=== PATIENT | male | born 1950 | race Caucasian/White ===

== ENCOUNTER → 2019-01-31 09:36 | Outpatient (CLI) | payer MEDICARE, OTHER, SELFPAY ==
[2019-01-31 11:40] LABS: Prostate Specific Antigen 4.32 ng/mL (0.10-4.00)
== END ==
PROVIDERS: Visit Provider Specialist
DX: N40.1 Benign prostatic hyperplasia with lower urinary tract symptoms (principal)
CPT/HCPCS: 36415; 84153

== ENCOUNTER → 2019-04-25 12:39 | Outpatient (CLI) | payer MEDICARE, OTHER, SELFPAY ==
[2019-04-25 14:21] LABS: Prostate Specific Antigen 4.37 ng/mL (0.10-4.00)
== END ==
PROVIDERS: Visit Provider Specialist
DX: N40.1 Benign prostatic hyperplasia with lower urinary tract symptoms (principal)
CPT/HCPCS: 36415; 84153

== ENCOUNTER → 2020-07-03 14:07 | Outpatient (CLI) | payer MEDICARE, OTHER, SELFPAY ==
[2020-07-03 15:43] LABS: Prostate Specific Antigen 6.61 ng/mL (0.10-4.00)
== END ==
PROVIDERS: Referring Provider Specialist; Visit Provider Specialist
DX: R97.20 Elevated prostate specific antigen [PSA] (principal)
CPT/HCPCS: 36415; 84153

== ENCOUNTER → 2020-07-13 11:08 | Outpatient (CLI) | payer MEDICARE, OTHER, SELFPAY ==
--- NOTE | 2020-07-13 11:09 | DI.MRI.S_ITS ---
PROCEDURE: MR PELIS WO/W CON INDICATIONS: Differential diagnosis/Elevated PSA TECHNIQUE: Coronal HASTE, axial T1 FSE with fat saturation, 3-plane nonbreath-hold T2 FSE. After the administration of contrast, dynamic axial, delayed axial and coronal VIBE or 2-D FLASH with fat saturation through the pelvis. Optional diffusion weighted imaging and ADC may be performed. COMPARISON: None. FINDINGS: Image quality: Diffusion weighted and dynamic contrast enhanced images are diagnostic. Prostate: Gland size is cm; ellipsoid gland volume is 114 mL. There is prominent heterogeneous enlargement of the transitional zone. Lesion size(s): Lesion 1: Approximately 1.9 x 1.8 x 1.7 cm Lesion location(s) (sector): Lesion 1: Right anterior transitional zone at the apex. Lesion description: Lesion 1: There is an oval T2 hypointense lesion with indistinct margins. No definite extraprostatic extension. T2 weighted imaging (T2WI) morphology score: Lesion 1: 5 Diffusion weighted imaging (DWI) morphology score: Lesion 1: 5 Dynamic contrast enhancement (DCE): Lesion 1: Absent. Lesion PI-RADS score: Lesion 1: PI-RADS 5 Genitourinary system: There is mild bladder wall thickening and trabeculation compatible sequelae of chronic bladder outlet obstruction. Distal ureters are non distended. Bowel and peritoneum: No pathologic free pelvic fluid. Inferior colon and small bowel loops are normal in caliber. Nodes and vessels: No pelvic or inguinal adenopathy by size criteria. Iliac vessels are normal in caliber. Soft tissues: No inguinal hernias. Bones: Marrow demonstrates normal overall signal, without suspicious lesions to suggest metastases. There are a few small cystic lesions in the femoral necks bilaterally likely representing synovial herniation pits. There is mild periarticular enhancement around the hips, right greater than the left, likely reflecting degenerative changes. IMPRESSION: 1. PI-RADS 5 lesion demonstrated within the right transitional zone at very high suspicion for clinically significant prostate cancer. No evidence of extraprostatic extension. 2. No evidence of pelvic lymphadenopathy by size criteria. Dictated by: Braden Wolfe M.D. on 07/13/2020 at 15:21 Approved by: Braden Wolfe M.D. on 07/13/2020 at 16:07
== END ==
PROVIDERS: Referring Provider Specialist; Visit Provider Specialist
DX: N42.9 Disorder of prostate, unspecified (principal); R97.20 Elevated prostate specific antigen [PSA]; Z80.42 Family history of malignant neoplasm of prostate
CPT/HCPCS: 72197

== ENCOUNTER → 2024-03-22 11:09 | Outpatient (CLI) | payer MEDICARE, OTHER, SELFPAY ==
--- NOTE | 2024-03-22 11:13 | DI.RAD.S_ITS ---
PROCEDURE: XR KNEE LT 3V INDICATIONS: KNEE PAIN TECHNIQUE: 3 views of the knee were acquired. COMPARISON: None. 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 No radiographic evidence of fracture, dislocation, knee joint effusion or high attenuation soft tissue foreign body. If symptoms persist or worsen, or there is high clinical suspicion of acute abnormality, MRI could be performed Dictated by: Morales Obrien M.D. on 03/22/2024 at 20:16 Approved by: Morales Obrien M.D. on 03/22/2024 at 20:18
== END ==
PROVIDERS: PCP Family Medicine; Referring Provider Family Medicine; Visit Provider Family Medicine
DX: M25.562 Pain in left knee (principal); G89.29 Other chronic pain
CPT/HCPCS: 73562

== ENCOUNTER → 2024-05-30 17:00 | Outpatient (CLI) | payer MEDICARE, OTHER, SELFPAY ==
--- NOTE | 2024-05-30 17:03 | DI.RAD.S_ITS ---
PROCEDURE: XR CHEST 2V INDICATIONS: PNEUMONIA TECHNIQUE: 2 views of the chest were acquired. COMPARISON: None. FINDINGS: Surgical changes and devices: None. Lungs and pleura: Dense consolidation is seen in the right middle lobe with silhouetting of the right heart border. No pleural effusions or pneumothorax. Mediastinum: Mediastinal contours are normal. Heart size is normal. Bones and chest wall: No suspicious bony abnormalities. Soft tissues appear unremarkable. IMPRESSION: Dense consolidation in the right middle lobe is suspicious for pneumonia. Recommend radiographic follow-up to resolution. Approved by: Israel Cadet M.D. on 05/30/2024 at 17:46
== END ==
PROVIDERS: PCP Family Medicine; Referring Provider Internal Medicine; Visit Provider Internal Medicine
DX: J18.9 Pneumonia, unspecified organism (principal)
CPT/HCPCS: 71046

== ENCOUNTER → 2025-04-13 13:09 | Outpatient (CLI) | payer MEDICARE, OTHER, SELFPAY ==
--- NOTE | 2025-04-13 13:13 | DI.RAD.S_ITS ---
PROCEDURE: XR HAND LT MIN 3V INDICATIONS: STIFFNESS IN HANDS TECHNIQUE: 3 views of the hand(s) acquired. COMPARISON: None. FINDINGS: Bones: No fractures or dislocations. Degenerative change of the trapeziometacarpal, triscaphe and 1st interphalangeal joints includes joint space narrowing, marginal osteophytosis and subchondral sclerosis. Carpal bones are normally aligned. No suspicious bony lesions. Soft tissues: No suspicious soft tissue calcifications. 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 Dictated by: Richardson Armenta M.D. on 04/17/2025 at 5:57 Approved by: Richardson Armenta M.D. on 04/17/2025 at 6:01
--- NOTE | 2025-04-13 13:13 | DI.RAD.S_ITS ---
PROCEDURE: XR HAND RT MIN 3V INDICATIONS: STIFFNESS IN HANDS TECHNIQUE: 3 views of the hand(s) acquired. COMPARISON: None. FINDINGS: Bones: No fractures or dislocations. Degenerative change of the trapeziometacarpal, 1st metatarsophalangeal and interphalangeal joints includes joint space narrowing, marginal osteophytosis and subchondral sclerosis. Carpal bones are normally aligned. No suspicious bony lesions. Soft tissues: No suspicious soft tissue calcifications. 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 Dictated by: Richardson Armenta M.D. on 04/17/2025 at 5:55 Approved by: Richardson Armenta M.D. on 04/17/2025 at 5:56
== END ==
PROVIDERS: PCP Family Medicine; Referring Provider Family Medicine; Visit Provider Family Medicine
DX: M25.641 Stiffness of right hand, not elsewhere classified (principal); M25.642 Stiffness of left hand, not elsewhere classified; M12.842 Other specific arthropathies, not elsewhere classified, left hand; M12.841 Other specific arthropathies, not elsewhere classified, right hand
CPT/HCPCS: 73130

== ENCOUNTER → 2025-05-12 13:09 | Outpatient (CLI) | payer MEDICARE, OTHER, SELFPAY ==
--- NOTE | 2025-05-12 13:15 | DI.RAD.S_ITS ---
PROCEDURE: XR CHEST 2V INDICATIONS: F/U on [facility] May 2024 TECHNIQUE: 2 views of the chest were acquired. COMPARISON: [facility], CR, XR CHEST 2V, 05/30/2024, 17:04. FINDINGS: Surgical changes and devices: None. Lungs and pleura: Lungs are clear. Resolved previously seen right middle lobe consolidation. No pleural effusions or pneumothorax. Mediastinum: Mediastinal contours are normal. Heart size is normal. Bones and chest wall: No suspicious bony abnormalities. Soft tissues appear unremarkable. IMPRESSION: No focal consolidation. Dictated by: Katya Coughlin M.D. on 05/14/2025 at 13:13 Approved by: Katya Coughlin M.D. on 05/14/2025 at 13:15
== END ==
LOC: RAD 13:12
PROVIDERS: PCP Family Medicine; Referring Provider Family Medicine; Visit Provider Family Medicine
DX: J18.9 Pneumonia, unspecified organism (principal)
CPT/HCPCS: 71046